=== PATIENT | male | born 1955 | race Caucasian/White ===

== ENCOUNTER → 2019-06-09 | Day surgery (SDC) | payer OTHER ==
--- NOTE | 2019-06-08 20:52 | Pre Op History & Physical ---
CHIEF COMPLAIN: Lesion in the posterior glottic area on the left side. HISTORY OF PRESENT ILLNESS: This 64-year-old male was noted to have a lesion in the left posterior vocal cord on EGD. The patient has some choking at night. He denies any dysphagia or odynophagia. The patient has no shortness of breath. The patient is on medication for his gastroesophageal reflux disease. The patient does have a lot of throat clearing. He denies any hoarseness. REVIEW OF SYSTEMS: System review showed no recent cardiovascular, respiratory, or GI problem. PAST MEDICAL HISTORY: The patient has a history of hypertension. PAST SURGICAL HISTORY: He has a previous cholecystectomy and knee replacement. ALLERGIES: HE HAS NO KNOWN ALLERGIES TO MEDICATION. MEDICATIONS: He is on hydrochlorothiazide, amlodipine, chlorthalidone, omeprazole, Celebrex, Centrum, aspirin, D3. SOCIAL HISTORY: He stopped smoking about 30 years ago and is a social drinker. FAMILY HISTORY: Noncontributory. PHYSICAL EXAMINATION: VITAL SIGNS: On examination, patient's vital signs were within normal limits. HEENT: Ear exam showed normal tympanic membrane bilaterally. Nasal exam showed no obvious abnormality. Nasal endoscopy showed the patient has no lesion in the hypopharynx with mobile vocal folds bilaterally. He was noted to have a pyogenic granuloma in the left posterior glottic area around the arytenoids. Oropharynx and oral cavity show 2+ tonsils bilaterally with Mallampati level two. NECK: Showed no lymph nodes or thyroid palpable. CHEST: Showed good air entry bilaterally. CARDIOVASCULAR: Showed S1, S2. No murmur noted. ASSESSMENT AND PLAN: Mr. Munoz has a lesion in the left posterior glottic area which has been resistant to conservative therapy. The suggested treatment is panendoscopy, microlaryngoscopy, and biopsy and other necessary procedure. Also removal of the lesion. The complication of procedure includes, but not limited to bleeding, infection, perforation of the esophagus, pneumomediastinum, mediastinitis , airway compromise, persistent recurrence of the problem. Alternative could be repeat flexible laryngoscopy exam do nothing, antireflux therapy and biopsy of the lesion in the office setting. The patient has elected to undergo surgical procedure. Brent Haynes MD DKH/MODL /[id number] cc: Dr. Mcknight in [place]
[~2019-06-09] MED LIST: ACETAMINOPHEN 1000 MG/100 ML 100 ML IV ONE; AMLODIPINE-BEN1 EAC5; AMOXICILLIN250 MG PO; ASPIRIN81 MG; CELEBREX50 MG PO; CENTRUM COMPLE1 EACH; CHLORTHALIDONE25 MG; DEXAMETHASONE SOD PHOS 10 MG/1 ML VIAL ONE; DEXAMETHASONE SOD PHOS INJ 4 MG/ML VIAL ONE; EPINEPHRINE HCL 1:1000 1ML 1 MG/ML AMP ONE; FENTANYL CITRATE/PF 100MCG/2 ML INJ ONE; HYDROCHLOROTHIA25 MG; LIDOCAINE HCL (LTA) 4 ML SOLN ONE; LIDOCAINE HCL 2% JELLY 5 ML TUBE ONE; LIDOCAINE HCL 2% LOCAL INJ 5 ML SDV VIAL INJ ONE; MIDAZOLAM HCL 2 MG/2 ML VIAL ONE; OMEPRAZOLE40 MG; ONDANSETRON HCL INJ 2MG/ML 2ML 2 MG/ML VIAL ONE; PROPOFOL IV EMULSION 10 MG/ML 20 ML VIAL ONE; ROCURONIUM BROMIDE 10 MG/ML 5ML VIAL ONE; SEVOFLURANE INHAL SOLN 250 ML PEN BTL ONE; SIMVASTATIN20 MG PO; SUCCINYLCHOLINE 200 MG/10 ML SYR ONE
--- OUTSIDE RECORDS SUMMARY | 2019-06-09 05:53 | XMS REPORT ---
Author [facility] Address Unknown Phone Unavailable Care Team Providers Care Wrapper Stemmer Hand Name Role Phone Erika Diaz Unavailable Unavailable Problems This patient has no known problems. Allergies, Adverse Reactions, Alerts This patient has no known allergies or adverse reactions. Medications This patient has no known medications. Results Test Description Test Time Test Comments Text Results Atomic Results Result Comments [id number]--[id number] 2017-09-13 09:59:00 RUN DATE: 09/13/17 [facility] LAB*Live* PAGE 1 RUN TIME: 1000 Specimen Inquiry PATIENT: DELMY VAZQUEZ ACCT: [id number] LOC: 2ND U: [id number] AGE/SX: 62/M ROOM: 203 RE09/11/17REG DR: To Diaz MD : 1955 BED: A DIS: STATUS: ADM IN TLOC: SPEC : [id number] RECD: 09/11/17 STATUS: HOA COLLIER NUM: [id number] MARSHA: 09/11/17- SUBM DR: To Diaz MD ENTERED: 09/11/17 SP TYPE: INPATIENT [facility] DR: ORDERED: [id number] CODES: KNEE, NOS PROCEDURES: [id number] (09/13/17) TISSUES: KNEE, NOS - LEFT KNEE BONE & CARTILAGE CLINICAL HISTORY Pre-op Diagnosis: Left knee osteoarthritis.Post-op Diagnosis: Same. DIAGNOSIS Left knee bone and cartilage, total left-knee replacement: - Fragments of benign osteocartilaginous tissue with degenerative changes - Fragments of synovium with reactive changes - Few deposits of crystalline material suggestive of chondrocalcinosis CPT 15642, 07713 GROSS DESCRIPTION The case is received in one part, labeled with the patient's name "Delmy Vazquez" andaccession #[id number] accompanied by a requ isition slip labeled with the patient's name andthe same accession number. The specimen is received in formalin, labeled "left knee osteoarthritis" and consists ofseveral slices of bone, fragments of soft tissue and fragments of meniscus measuringapproximately 23 x 10.5 x 2 cm in aggregate. The slices of bone measure up to 9 cm inmaximum dimension. The articular surface is granular with areas of eburnation and lipping.Manager Intermediate sections are submitted in two cassettes with the bone in cassette 2 fordecalcification. (ASW) MICROSCOPIC DESCRIPTION Sections of decalcified bone show benign osteo cartilaginous tissue with degenerative changesof the articular cartilage. The cartilage shows a few deposits of crystalline materialpartially visible by polarized light microscopy. The soft tissue shows synovium with somereactive changes. Signed (signature on file) Rosalia Saucedo MD 09/13/17 0959 END OF REPORT Basic Metabolic Panel 2017-09-13 05:48:00 Sodium level (test mhrj=KSS8170) 135 meq/L 135-145 3.9 Chloride measurement (test tnuh=KCS8970) 98 meq/L 101-111 Bicarbonate (test code=CO2) 29 meq/L 21-31 Glucose measurement (test rnwx=IQQ5627) 112 mg/dL 65-120 ADA Clinical Practice Recommendation: <100 mg/dl=Normal Fasting Glucose BUN Bld-mCnc (test dhvu=8166-5) 10 mg/dL 6-20 Creatinine measurement (test pkpp=IUV0511) 0.83 mg/dL 0.61-1.24 The creatinine method used has been calibrated to be traceable to Isotope dilution Mass Spectrometry (IDMS). For more information: www.nkdep.nih.gov Estimated glomerular filtration rate (GFR) determination (test nvmg=61075-8) >90 mL =/>90 FOR CHRONIC KIDNEY DISEASE: GFR STAGE DESCRIPTION=/>90 STAGE 1 NORMAL--OR-- MINIMAL KIDNEY DAMAGE WITH NORMAL GFR 60-89 STAGE 2 MILD DECREASE IN GFR 30-59 STAGE 3 MODERATE DECREASE IN GFR 15-29 STAGE 4 SEVERE DECREASE IN GFR <15 STAGE 5 KIDNEY FAILURE The Glomerular Filtration Rate (GFR) has been calculated using the IDMS-Traceable MDRD Study Equation. Calcium Level (test code=CA) 8.9 mg/dL 8.5-10.5 Primary Language EnglishComplete blood count (CBC) with automated white blood cell (WBC) qrmheandxema3779-66-70 05:43:00* Test Item Value Reference Range Comments White blood cell count (test jtkj=ZJT8055) 11.0 4.3-10.9 Blood erythrocytes count (number/volume) (test zkrd=23770-9) 4.19 M/ul 4.33-5.43 Hemoglobin measurement (test rkqa=ROI7462) 13.3 g/dL 13.6-17.9 Blood hematocrit (volume fraction) (test ybnl=39670-1) 38.7 % 39.6-49.0 MCV (test nwji=63478-4) 92.5 fL 80-100 MCH (test dsvr=94420-8) 31.7 pg 27.0-35.0 MCHC (test code=MCHC) 34.3 g/dL 32.0-36.0 Platelets (test code=PLT) 210 152-406 Red Cell Distribution Width (test code=RDW) 12.8 % 12.1-15.2 Blood platelet mean volume (test nsyt=98117-5) 9.3 fL 7.6-11.3 Neutrophils % (test code=MARCELINO%) 69.6 % 41.7-73.7 Lymphocytes/leuk NFr Bld (test umsl=32251-1) 18.5 % 15.3-44.8 Monocyte percentage (test wbbf=5198-7) 11.0 % 3.3-12.3 Eosinophil % (test wwct=600-8) 0.4 % 0-4.4 Basophil % (test bzgq=66688-4) 0.5 % 0-1.3 Absolute neutrophil count (test xkdo=728-2) 7.7 1.8-8.0 Absolute lymphocyte count (test dnlf=97873-2) 2.0 0.7-4.9 Absolute monocyte count (test tjkg=750-1) 1.2 0.1-1.3 Absolute Eosinophils (test code=EOA) 0.0 0-0.5 Absolute Basophils (test code=BASA) 0.1 0-0.5 Primary Language EnglishComplete blood count (CBC) with automated white blood cell (WBC) fnvadrufygbn8508-84-42 06:04:00* Test Item Value Reference Range Comments White blood cell count (test zakz=RFI6473) 10.6 4.3-10.9 Blood erythrocytes count (number/volume) (test xeto=84712-6) 4.06 M/ul 4.33-5.43 Hemoglobin measurement (test rubo=IBF4381) 13.2 g/dL 13.6-17.9 Blood hematocrit (volume fraction) (test qlun=40411-7) 37.4 % 39.6-49.0 MCV (test cnwf=05076-2) 92.1 fL 80-100 MCH (test ahyp=36486-7) 32.4 pg 27.0-35.0 MCHC (test code=MCHC) 35.2 g/dL 32.0-36.0 Platelets (test code=PLT) 204 152-406 Red Cell Distribution Width (test code=RDW) 12.8 % 12.1-15.2 Blood platelet mean volume (test nxxk=90742-1) 9.5 fL 7.6-11.3 Neutrophils % (test code=MARCELINO%) 70.6 % 41.7-73.7 Lymphocytes/leuk NFr Bld (test ciqf=94923-4) 17.2 % 15.3-44.8 Monocyte percentage (test sreo=7701-6) 11.5 % 3.3-12.3 Eosinophil % (test nqjc=571-3) 0.5 % 0-4.4 Basophil % (test lmor=94525-6) 0.2 % 0-1.3 Absolute neutrophil count (test xaxb=697-3) 7.5 1.8-8.0 Absolute lymphocyte count (test bcai=07625-8) 1.8 0.7-4.9 Absolute monocyte count (test iwzi=062-0) 1.2 0.1-1.3 Absolute Eosinophils (test code=EOA) 0.1 0-0.5 Absolute Basophils (test code=BASA) 0.0 0-0.5 Primary Language [facility] Metabolic Sodwl3268-08-56 05:56:00* Test Item Value Reference Range Comments Sodium level (test nkfy=TVN8476) 139 meq/L 135-145 4.2 Chloride measurement (test ygvs=SMM3113) 104 meq/L 101-111 Bicarbonate (test code=CO2) 29 meq/L 21-31 Glucose measurement (test cpjd=NVF6490) 115 mg/dL 65-120 ADA Clinical Practice Recommendation: <100 mg/dl=Normal Fasting Glucose BUN Bld-mCnc (test qiqk=4574-2) 13 mg/dL 6-20 Creatinine measurement (test hbbg=IYD2201) 0.92 mg/dL 0.61-1.24 The creatinine method used has been calibrated to be traceable to Isotope dilution Mass Spectrometry (IDMS). For more information: www.nkdep.nih.gov Estimated glomerular filtration rate (GFR) determination (test xihq=54420-5) 84 mL =/>90 FOR CHRONIC KIDNEY DISEASE: GFR STAGE DESCRIPTION=/>90 STAGE 1 NORMAL--OR-- MINIMAL KIDNEY DAMAGE WITH NORMAL GFR 60-89 STAGE 2 MILD DECREASE IN GFR 30-59 STAGE 3 MODERATE DECREASE IN GFR 15-29 STAGE 4 SEVERE DECREASE IN GFR <15 STAGE 5 KIDNEY FAILURE The Glomerular Filtration Rate (GFR) has been calculated using the IDMS-Traceable MDRD Study Equation. Calcium Level (test code=CA) 8.9 mg/dL 8.5-10.5 Primary Language EnglishHemoglobin bbboychmeqy7016-68-43 11:55:00* Test Item Value Reference Range Comments Hemoglobin measurement (test vqxp=QPK3381) 14.5 g/dL 13.6-17.9 Primary Language EnglishBlood hematocrit (volume fraction)2017-09-11 11:55:00* Test Item Value Reference Range Comments Blood hematocrit (volume fraction) (test snjt=69776-4) 42.9 % 39.6-49.0 Primary Language EnglishBasic Metabolic Lmzst7801-93-19 11:32:00* Test Item Value Reference Range Comments Sodium level (test outp=OFS2888) 142 meq/L 135-145 4.3 Chloride measurement (test patw=KBT3562) 99 meq/L 101-111 Bicarbonate (test code=CO2) 30 meq/L 21-31 Glucose measurement (test lazy=XCQ3541) 112 mg/dL 65-120 ADA Clinical Practice Recommendation: <100 mg/dl=Normal Fasting Glucose BUN Bld-mCnc (test alox=0607-3) 13 mg/dL 6-20 Creatinine measurement (test aden=XPH4511) 0.92 mg/dL 0.61-1.24 The creatinine method used has been calibrated to be traceable to Isotope dilution Mass Spectrometry (IDMS). For more information: www.nkdep.nih.gov Estimated glomerular filtration rate (GFR) determination (test mavu=44762-7) 84 mL =/>90 FOR CHRONIC KIDNEY DISEASE: GFR STAGE DESCRIPTION=/>90 STAGE 1 NORMAL--OR-- MINIMAL KIDNEY DAMAGE WITH NORMAL GFR 60-89 STAGE 2 MILD DECREASE IN GFR 30-59 STAGE 3 MODERATE DECREASE IN GFR 15-29 STAGE 4 SEVERE DECREASE IN GFR <15 STAGE 5 KIDNEY FAILURE The Glomerular Filtration Rate (GFR) has been calculated using the IDMS-Traceable MDRD Study Equation. Calcium Level (test code=CA) 10.4 mg/dL 8.5-10.5 Primary Language EnglishProthrombin time (PT) with international normalized ratio (INR)2017-09-05 10:00:00* Test Item Value Reference Range Comments PT Prothrombin Time (test code=PROTIME) 11.7 s 9.5-12.5 INR in Blood by Coagulation assay (test pkvl=97938-8) 0.99 Monitor pts using INR value (not prothrombin time) INR Coumadin Therapy: Low Range (prophylaxis) 2.0-3.0 High Range (high risk of clot formation) 2.5-3.5 Primary Language [place] Test Ordered to Rule Out VTE/DVT? NPTT, Activated Partial Nmzsba5506-38-09 10:00:00* Test Item Value Reference Range Comments PTT, Activated Partial Thromb (test code=PTT) 29.4 s 24.3-36.9 Primary Language [place] Test Ordered to Rule Out VTE/DVT? NComplete blood count (CBC) with automated white blood cell (WBC) puxyxldknuag1866-62-45 09:59:00* Test Item Value Reference Range Comments White blood cell count (test jori=SNM8720) 6.1 4.3-10.9 Blood erythrocytes count (number/volume) (test gota=18762-8) 5.39 M/ul 4.33-5.43 Hemoglobin measurement (test hxxl=JVT6793) 17.0 g/dL 13.6-17.9 Blood hematocrit (volume fraction) (test sahx=21152-3) 50.5 % 39.6-49.0 MCV (test skwq=86574-9) 93.5 fL 80-100 MCH (test pjnl=48379-1) 31.5 pg 27.0-35.0 MCHC (test code=MCHC) 33.6 g/dL 32.0-36.0 Platelets (test code=PLT) 249 152-406 Red Cell Distribution Width (test code=RDW) 13.3 % 12.1-15.2 Blood platelet mean volume (test rula=40261-6) 9.7 fL 7.6-11.3 Neutrophils % (test code=MARCELINO%) 48.5 % 41.7-73.7 Lymphocytes/leuk NFr Bld (test emgm=79965-2) 36.1 % 15.3-44.8 Monocyte percentage (test jnmj=0985-7) 10.9 % 3.3-12.3 Eosinophil % (test tkpw=987-0) 3.8 % 0-4.4 Basophil % (test ehtz=63681-6) 0.7 % 0-1.3 Absolute neutrophil count (test tzls=300-5) 2.9 1.8-8.0 Absolute lymphocyte count (test ahji=26085-8) 2.2 0.7-4.9 Absolute monocyte count (test lpvm=981-3) 0.7 0.1-1.3 Absolute Eosinophils (test code=EOA) 0.2 0-0.5 Absolute Basophils (test code=BASA) 0.0 0-0.5 Primary Language EnglishKnee Left 2 [place] [address] Name: DELMY VAZQUEZ Phys: To Diaz MD [facility] : 1955 Age: 62 Sex:M Acct: [id number] Loc: 2ND Exam Date: 09/11/17 Status: ADM IN Radiology Number: Unit Number: [id number] EXAM DESCRIPTION: RAD - Knee Left 2 View - 09/11/2017 11:08 am CLINICAL HISTORY: Left knee surgery FINDINGS: Postsurgical changes of a left knee arthroplasty are seen. The prosthesis is in good position. No fracture or dislocation is seen. Signed By: Austin Bacon MD Signed AT: 09/11/17 1219 Outpt Chest Pa/Lat (2 Views)[place] [address] Name: DELMY VAZQUEZ Phys: To Diaz MD [facility] : 1955 Age: 62 Sex:M Acct: [id number] Loc: DSO Exam Date: 09/05/17 Status: PRE IN Radiology Number: Unit Number: [id number] EXAM DESCRIPTION: RADOP - Outpt Chest Pa/Lat (2 Views) - 09/05/2017 9:15 am CLINICAL HISTORY: Chest pain. COMPARISON: None. FINDINGS: The lungs are clear. The heart is normal in size. No displaced fractures. IMPRESSION: No acute or concerning finding suspected. Signed By: Bob Keating MD Signed AT: 09/05/17 0935
--- OUTSIDE RECORDS SUMMARY | 2019-06-09 05:54 | XMS REPORT ---
Author Author Maxx Alvarez [employer] Address Unknown Phone Unavailable Care Team Providers Care Councillor [employer] Name Role Phone Maxx Alvarez CP Unavailable Allergies, Adverse Reactions, Alerts Substance Reaction Event Type N.K.D.A. 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 Active Problem Unspecified thoracic, thoracolumbar and lumbosacral intervertebral disc disorder M51.9 Active Problem History of left knee replacement Z96.652 Active Problem Seasonal allergies J30.2 Active Problem Primary osteoarthritis of right knee M17.11 Active Problem BMI 32.0-32.9,adult Z68.32 Active Problem Hx of CABG Z95.1 Active Problem Allergic rhinitis, seasonal J30.2 Active Problem Status post total left knee replacement Z96.652 Active Problem Gastroesophageal reflux disease without esophagitis K21.9 Active Assessment Hyperlipidemia E78.5 Active Assessment Hypertension I10 Active Assessment BMI 32.0-32.9,adult Z68.32 Active Problem BMI 31.0-31.9,adult Z68.31 Active Problem Hyperglycemia R73.9 Active Problem Hypertension I10 Active Problem QUESADA (nonalcoholic steatohepatitis) K75.81 Active Problem Hyperlipidemia E78.5 Active Medications Medication Code System Code Instructions Start Date End Date Status Dosage Montelukast Sodium [facility] 87562893033 10 MG Orally Once a day Jul 16, 2018 Active 1 tablet Hydrochlorothiazide [facility] 88521657105 12.5 MG Active 1 EACH ONCE A DAY ONCE DAILY, IN THE AM ORALLY Centrum Performance [facility] 04270687961 - Orally daily Active 1 Zyrtec Allergy [facility] 10484260147 10 MG Orally Once a day Active 1 tablet Aspir-Low ND 80921776116 81 MG Orally Once a day February 13, 2018 Aug 07, 2019 Active 1 tablet Lotrel [facility] 43803984274 10-40 MG Active 1 EACH ONCE A DAY ORALLY Diclofenac Sodium [facility] 48025695789 1 % Transdermal Twice a day Jan 16, 2019 April 16, 2019 Active as needed Simvastatin [facility] 69450900924 10 MG Orally Once a day February 25, 2019 Active 1 tablet in the evening Chlorthalidone [facility] 15435313012 25 MG Orally Once a day February 25, 2019 Active 1 tablet in the morning with food Pantoprazole Sodium [facility] 46304711911 40 MG Orally Once a day Jan 16, 2019 Active 1 tablet Flonase [facility] 94418847472 50 MCG/DOSE Nasally Once a day Active 1 spray in each nostril Celecoxib [facility] 76134143953 200 MG Orally Once a day Active 1 capsule with food Results No Known Results Summary Purpose eClinicalWorks Submission
--- OUTSIDE RECORDS SUMMARY | 2019-06-09 05:54 | XMS REPORT ---
Author Author To Diaz [facility] eClinicalWorks Address Unknown Phone Unavailable Care Team Providers Care Regional Engagement Consultant Name Role Phone To Diaz CP Unavailable Allergies, Adverse Reactions, Alerts Substance Reaction Event Type N.K.D.A. Info Not Available Non Drug Allergy Problems Problem Type Condition Code Onset Dates Condition Status Problem History of left knee replacement Z96.652 Active Problem Allergic rhinitis, seasonal J30.2 Active Problem Unspecified thoracic, thoracolumbar and lumbosacral intervertebral disc disorder M51.9 Active Problem BMI 32.0-32.9,adult Z68.32 Active Assessment Status post total left knee replacement Z96.652 Active Problem Seasonal allergies J30.2 Active Assessment Primary osteoarthritis of right knee M17.11 Active Problem Seasonal allergic rhinitis, unspecified trigger J30.2 Active Problem Gastroesophageal reflux disease without esophagitis K21.9 Active Problem Hx of CABG Z95.1 Active Problem Primary osteoarthritis of right knee M17.11 Active Problem Status post total left knee replacement Z96.652 Active Assessment Pain in joint of left knee M25.562 Active Assessment Pain, joint, knee, left M25.562 Active Assessment Pain, joint, knee, right M25.561 Active Problem Hyperglycemia R73.9 Active Problem Hypertension I10 Active Problem QUESADA (nonalcoholic steatohepatitis) K75.81 Active Problem Hyperlipidemia E78.5 Active Problem BMI 31.0-31.9,adult Z68.31 Active Problem Osteoarthrosis, localized, secondary, 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 29629479149 10-40 MG Active 1 EACH ONCE A DAY ORALLY Simvastatin ND 89528691144 10 MG Orally Once a day February 25, 2019 Active 1 tablet in the evening Fluticasone Propionate ND 69340501497 50 MCG/ACT Nasally Once a day April 02, 2019 Active 1 spray in each nostril Diclofenac Sodium [facility] 81106892210 1 % Transdermal Twice a day Jan 16, 2019 April 16, 2019 Active as needed Zyrtec Allergy [facility] 04586800247 10 MG Orally Once a day Active 1 tablet Aspir-Low [facility] 52290242214 81 Orally Once a day Active 1 tablet Pantoprazole Sodium [facility] 58355158440 40 MG Orally Once a day Jan 16, 2019 Active 1 tablet Carbinoxamine Maleate [facility] 86486811918 4 MG Orally Three times a day April 02, 2019 April 17, 2019 Active 1 tablet as needed Flonase [facility] 37384675559 50 MCG/DOSE Nasally Once a day Active 1 spray in each nostril Montelukast Sodium [facility] 53540640911 10 MG Orally Once a day Jul 16, 2018 Active 1 tablet Hydrochlorothiazide [facility] 71055857145 12.5 MG Active 1 EACH ONCE A DAY ONCE DAILY, IN THE AM ORALLY Centrum Performance [facility] 55251743657 - Orally daily Active 1 Celecoxib [facility] 60353494228 200 MG Orally Once a day Active 1 capsule with food Chlorthalidone [facility] 62711678064 25 MG Orally Once a day February 25, 2019 Active 1 tablet in the morning with food Results No Known Results Summary Purpose eClinicalWorks Submission
--- OUTSIDE RECORDS SUMMARY | 2019-06-09 05:54 | XMS REPORT ---
Author Author Maxx Alvarez [employer] Address Unknown Phone Unavailable Care Team Providers Care Technical Services Librarian Name Role Phone Maxx Alvarez CP Unavailable Allergies, Adverse Reactions, Alerts Substance Reaction Event Type N.K.D.A. Info Not Available Non Drug Allergy Problems Problem Type Condition Code Onset Dates Condition Status Problem History of left knee replacement Z96.652 Active Problem Allergic rhinitis, seasonal J30.2 Active Problem Unspecified thoracic, thoracolumbar and lumbosacral intervertebral disc disorder M51.9 Active Problem BMI 32.0-32.9,adult Z68.32 Active Problem Seasonal allergies J30.2 Active Problem Seasonal allergic rhinitis, unspecified trigger J30.2 Active Problem Gastroesophageal reflux disease without esophagitis K21.9 Active Problem Hx of CABG Z95.1 Active Problem Primary osteoarthritis of right knee M17.11 Active Problem Status post total left knee replacement Z96.652 Active Assessment Seasonal allergic rhinitis, unspecified trigger J30.2 Active Problem Hyperglycemia R73.9 Active Problem Hypertension I10 Active Problem QUESADA (nonalcoholic steatohepatitis) K75.81 Active Problem Hyperlipidemia E78.5 Active Problem BMI 31.0-31.9,adult Z68.31 Active Problem Osteoarthrosis, localized, secondary, 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 Active Medications Medication Code System Code Instructions Start Date End Date Status Dosage Pantoprazole Sodium ND 55487517378 40 MG Orally Once a day Jan 16, 2019 Active 1 tablet Chlorthalidone ND 87875518444 25 MG Orally Once a day February 25, 2019 Active 1 tablet in the morning with food Montelukast Sodium ND 38221722462 10 MG Orally Once a day Jul 16, 2018 Active 1 tablet Flonase ND 80482633870 50 MCG/DOSE Nasally Once a day Active 1 spray in each nostril Aspir-Low ND 63718125452 81 MG Orally Once a day February 13, 2018 Aug 07, 2019 Active 1 tablet Carbinoxamine Maleate [facility] [place] 77113775347 4 MG Orally Three times a day April 02, 2019 April 17, 2019 Active 1 tablet as needed Celecoxib [facility] [place] 03908460511 200 MG Orally Once a day Active 1 capsule with food Lotrel [facility] [place] 41782357018 10-40 MG Active 1 EACH ONCE A DAY ORALLY Simvastatin [facility] [place] 91349346553 10 MG Orally Once a day February 25, 2019 Active 1 tablet in the evening Diclofenac Sodium [facility] [place] 34761088719 1 % Transdermal Twice a day Jan 16, 2019 April 16, 2019 Active as needed Aspir-Low [facility] [place] 47918807182 81 Orally Once a day Active 1 tablet Centrum Performance [facility] [place] 91123606796 - Orally daily Active 1 Zyrtec Allergy [facility] [place] 80661134293 10 MG Orally Once a day Active 1 tablet Fluticasone Propionate [facility] [place] 66971006893 50 MCG/ACT Nasally Once a day April 02, 2019 Active 1 spray in each nostril Hydrochlorothiazide [facility] [place] 78936343070 12.5 MG Active 1 EACH ONCE A DAY ONCE DAILY, IN THE AM ORALLY Results No Known Results Summary Purpose eClinicalWorks Submission
--- OUTSIDE RECORDS SUMMARY | 2019-06-09 05:54 | XMS REPORT ---
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 Active Problem Hyperlipidemia E78.5 Active Problem QUESADA (nonalcoholic steatohepatitis) K75.81 Active Problem BMI 31.0-31.9,adult Z68.31 Active Problem Hyperglycemia R73.9 Active Problem Primary osteoarthritis of right knee M17.11 Active Problem Status post total left knee replacement Z96.652 Active Problem Seasonal allergies J30.2 Active Problem Unspecified thoracic, thoracolumbar and lumbosacral intervertebral disc disorder M51.9 Active Problem History of left knee replacement Z96.652 Active Problem Hx of CABG Z95.1 Active Problem Allergic rhinitis, seasonal J30.2 Active Medications No Known Medications Results No Known Results Summary Purpose [employer]ClinicalWorks Submission
--- OUTSIDE RECORDS SUMMARY | 2019-06-09 05:54 | XMS REPORT ---
Author Author Maxx Alvarez [facility] [employer] Address Unknown Phone Unavailable Care Team Providers Care Configuration Analyst Name Role Phone Maxx Alvarez CP Unavailable Allergies, Adverse Reactions, Alerts Substance Reaction Event Type N.K.D.A. 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 Active Problem Unspecified thoracic, thoracolumbar and lumbosacral intervertebral disc disorder M51.9 Active Problem History of left knee replacement Z96.652 Active Problem Primary osteoarthritis of right knee M17.11 Active Assessment Body mass index (BMI) of 32.0-32.9 in adult Z68.32 Active Problem Status post total left knee replacement Z96.652 Active Assessment Status post total left knee replacement Z96.652 Active Assessment Gastroesophageal reflux disease without esophagitis K21.9 Active Problem Seasonal allergies J30.2 Active Problem Hx of CABG Z95.1 Active Problem Allergic rhinitis, seasonal J30.2 Active Problem Gastroesophageal reflux disease without esophagitis K21.9 Active Problem Body mass index (BMI) of 32.0-32.9 in adult Z68.32 Active Assessment Hypertension I10 Active Assessment Hyperglycemia R73.9 Active Assessment QUESADA (nonalcoholic steatohepatitis) K75.81 Active Assessment Hyperlipidemia E78.5 Active Problem BMI 31.0-31.9,adult Z68.31 Active Problem Hyperglycemia R73.9 Active Problem Hypertension I10 Active Problem QUESADA (nonalcoholic steatohepatitis) K75.81 Active Problem Hyperlipidemia E78.5 Active Medications Medication Code System Code Instructions Start Date End Date Status Dosage Celecoxib NDC 01545953458 200 MG Orally Once a day Active 1 capsule with food Hydrochlorothiazide ND 44484792597 12.5 MG Active 1 EACH ONCE A DAY ONCE DAILY, IN THE AM ORALLY Celecoxib NDC 20827652981 200 Orally Once a day Active 1 capsule with food Hydrochlorothiazide ND 88945595769 12.5 Active 1 EACH ONCE A DAY ONCE DAILY, IN THE AM ORALLY Pantoprazole Sodium ND 77420140615 40 MG Orally Once a day Jan 16, 2019 Active 1 tablet Montelukast Sodium [facility] 93121115985 10 MG Orally Once a day Jul 16, 2018 Active 1 tablet Amlodipine Besy-Benazepril HCl [facility] 52330220286 10-40 MG Orally once a day Active 1 tablet Lotrel [facility] 98613377749 10-40 MG Active 1 EACH ONCE A DAY ORALLY Fluticasone Propionate [facility] 22499757875 50 MCG/ACT Nasally Once a day Active 1 spray in each nostril Diclofenac Sodium [facility] 71795521047 1 % Transdermal Twice a day Jan 16, 2019 April 16, 2019 Active as needed Zyrtec Allergy [facility] 41703395463 10 MG Orally Once a day Active 1 tablet Centrum Performance [facility] 79780658770 - Orally daily Active 1 Flonase [facility] 37731661544 50 MCG/DOSE Nasally Once a day Active 1 spray in each nostril Aspir-Low [facility] 10218646601 81 MG Orally Once a day February 13, 2018 Aug 07, 2019 Active 1 tablet Results No Known Results Summary Purpose eClinicalWorks Submission
[2019-06-09 07:13] LABS: ANION GAP 15.5 mmol/L (8-16); BLOOD UREA NITROGEN 11 mg/dL (7-26); BUN/CREATININE RATIO 14 (6-25); CALCIUM 10.3 mg/dL (8.4-10.2); CARBON DIOXIDE 29 mmol/L (22-29); CHLORIDE 94 mmol/L (98-107); CREATININE, SERUM 0.78 mg/dL (0.72-1.25); EST GLOMERULAR FILTRATION RATE > 60 ML/MIN (60-); GLUCOSE 101 mg/dL (74-118); POTASSIUM 3.5 mmol/L (3.5-5.1); SODIUM 135 mmol/L (136-145)
--- NOTE | 2019-06-09 07:15 | NUR ---
SPIRITUAL CARE - Pre-Surgery Assessment: Pt in bed. Pt's at bedside. Pt identified as Restoration. Pt reported supportive attention from family and friends. Intervention: I provided pastoral presence, hospitality, sympathetic listening, and prayer. I acquainted pt with availability of landscape laborer while hospitalized. Outcome: Pt expressed appreciation for visit. No need for follow up indicated at this time. KURT MURDOCK Desizing Machine Operator Head End Spiritual Care Department O: [phone] Pager: [phone] ([phone] number calling from)
[2019-06-09 10:10] VITALS: BP 125/75
--- NOTE | 2019-06-09 12:36 | Operative Report ---
DATE OF PROCEDURE: 06/09/2019 SURGEON: Brent Haynes MD CHIEF COMPLAINT: Lesion in the left posterior glottic area. POSTOPERATIVE DIAGNOSIS: Lesion in the left posterior glottic area. OPERATIVE PROCEDURE: Direct laryngoscopy, rigid esophagoscopy, rigid bronchoscopy, microlaryngoscopy, excision of left posterior glottic lesion, and biopsy of the left tongue base. ANESTHESIA: Anesthesiology group. HISTORY OF PRESENT ILLNESS: This 64-year-old male has a foreign body sensation in the throat for quite a few months. The patient has been treated with antireflux medication with no improvement. The patient has been seeing a GI physician. On EGD, he was noted to have a lesion in the posterior glottic area. On examination with a flexible laryngoscope, the pyogenic granuloma was noted in the posterior glottic area. It was noted in the left posterior glottic region on the left side. It was decided that panendoscopy, microlaryngoscopy, excisional biopsy of the lesion along with other necessary procedure will be beneficial for him. PROCEDURE IN DETAIL: The patient was taken to operating room, put under general anesthesia, endotracheally intubated. The patient was positioned and rigid esophagoscopy was performed. Esophagoscope was passed through the cricopharyngeus muscle, esophagus was examined to about 25 cm from the incisors, no abnormality was noted. The esophagoscope was retrieved, endotracheal tube cuff was 25 cm from the incisors, no abnormality was noted. Reflux was noted. Esophagoscope was retrieved. Rigid bronchoscopy was performed. A size #4 bronchoscope with Ahn wire was used. The bronchoscope was passed parallel to endotracheal tube, endotracheal tube cuff was deflated, trachea was examined down to the [place], no abnormality was noted. The bronchoscope was retrieved, endotracheal tube cuff was reinflated. The direct laryngoscopy was performed. The Dedo laryngoscope was used. The oropharynx and oral cavity were examined. Increased lymphoid tissue was noted in the tongue base. The left tongue base was biopsied and sent for permanent section. The piriform sinus on either side was examined, no abnormality was noted. The larynx was examined, both the true and false vocal folds were examined, no abnormality was noted in the true and false vocal folds. The lesion was noted in the posterior glottic area in the left side. The microlaryngoscopy was performed. The laryngoscope was put on suspension and operating microscope was brought in. Using micro laryngeal instrument, the left posterior glottic region was examined and the lesion was dissected off and sent for permanent section. Hemostasis in the area was achieved using epinephrine-soaked pledgets. The patient tolerated the above procedure well with minimal blood loss. The patient was given 20 mg of Decadron intraoperatively. He was able to be transferred to recovery room in stable condition. MD JOSE ARMANDO Joe/KIKI /[id number]
== END | disposition home or self-care (01) ==
LOC: NPA 05:51 → EDSEX 08:00
PROVIDERS: ATTEND Otolaryngology Otolaryngology/Facial Plastic Surgery
DX: J38.3 Other diseases of vocal cords (principal); I10 Essential (primary) hypertension; Z79.82 Long term (current) use of aspirin; Z87.891 Personal history of nicotine dependence; Z96.659 Presence of unspecified artificial knee joint
CPT/HCPCS: 36415; 80048; 88305; 93005; J0171; J1100; J2001; J2250; J2405; J3010